=== PATIENT | female | born 1970 | race Two or more races ===

== ENCOUNTER 2023-10-22 22:00 | Emergency (ER) | payer SELFPAY ==
[~2023-10-22] VITALS: Ht 167.6 cm; Wt 100.0 kg
[2023-10-23 03:45] VITALS: BP 113/66; PULSE 76; RESP 17; TEMP 98.9; O2SAT 97
[2023-10-23] MEDS: KETOROLAC TROMETH 60MG/2ML VIAL IM ONE (04:07)
[2023-10-23] MEDS ORDERED: IBUP-1455 PO (04:15)
[2023-10-23] MEDS ORDERED: CYCL-839 PO (04:15)
== END 2023-10-23 05:39 | disposition home or self-care (01) ==
LOC: ER 22:00 → EDBD 22:00 → ER 10-23 05:39
DX: S80.12XA Contusion of left lower leg, initial encounter (principal); S80.11XA Contusion of right lower leg, initial encounter; M54.2 Cervicalgia; M25.512 Pain in left shoulder; R07.89 Other chest pain; Z79.899 Other long term (current) drug therapy; V43.52XA Car driver injured in collision with other type car in traffic accident, initial encounter; Y93.I9 Activity, other involving external motion; Y92.89 Other specified places as the place of occurrence of the external cause; Y99.8 Other external cause status
CPT/HCPCS: 72100; 72125; 96372; 99285; J1885